=== PATIENT | male | born 1975 | race Caucasian/White ===

== ENCOUNTER → 2023-06-11 | Day surgery (SDC) | payer BC, OTHER ==
[~2023-06-11] MED LIST: Lactated Ringers 1,000 ML IV SCH; Propofol 200 MG/20 ML SDV ONE; fentaNYL 100 MCG/2 ML SDV ONE
== END ==
LOC: VM.SDS 08:54
PROVIDERS: ATTEND Surgery
DX: Z12.11 Encounter for screening for malignant neoplasm of colon (principal); I10 Essential (primary) hypertension; F41.8 Other specified anxiety disorders; Z88.2 Allergy status to sulfonamides; Z79.899 Other long term (current) drug therapy
CPT/HCPCS: 00812; J2704; J3010; J7120

== ENCOUNTER 2023-10-29 19:42 | Emergency (ER) | payer OTHER ==
[2023-10-29] MEDS: Lidocaine 1% 10 ML MDV INJECT ONE (20:15)
[2023-10-29] MEDS: Diphtheria,Pertussis(Acell),Tetanus Vaccine 0.5 ML Syringe IM ONE (20:30)
== END 2023-10-29 20:40 | disposition home or self-care (01) ==
LOC: VM.ED 19:42
DX: S61.412A Laceration without foreign body of left hand, initial encounter (principal); I10 Essential (primary) hypertension; F17.290 Nicotine dependence, other tobacco product, uncomplicated; Z79.899 Other long term (current) drug therapy; Z88.0 Allergy status to penicillin; Z23 Encounter for immunization; W29.8XXA Contact with other powered hand tools and household machinery, initial encounter
CPT/HCPCS: 12002; 90471; 90715; 99282-25; 99283; J3490